=== PATIENT | female | born 1945 | race Caucasian/White ===

== ENCOUNTER → 2018-02-19 | Outpatient (CLI) | payer MEDICARE, OTHER ==
[~2018-02-19] MED LIST: BUPIVACAINE HCL 0.5% 10 ML VIAL As Ordered; CONRAY-43 43% 50ML VIAL (Q9960) As Ordered; methylPREDNISolone SUSP 40 MG/ML (DEPO-medrol) VIAL (J1030) As Ordered
== END ==
LOC: M RADPRO 10:19
DX: M70.61 Trochanteric bursitis, right hip (principal); M16.11 Unilateral primary osteoarthritis, right hip
CPT/HCPCS: 20610

== ENCOUNTER → 2018-04-14 | Outpatient (REF) | payer MEDICARE, OTHER | LOC: M LAB REF 18:52 | DX: Z12.4 Encounter for screening for malignant neoplasm of cervix (principal); N95.2 Postmenopausal atrophic vaginitis | CPT/HCPCS: G0123 ==

== ENCOUNTER → 2023-04-17 | Outpatient (CLI) | payer MEDICARE, OTHER | LOC: M CARPUL 09:18 | PROVIDERS: ATTEND Family Medicine | DX: I35.8 Other nonrheumatic aortic valve disorders (principal); M19.90 Unspecified osteoarthritis, unspecified site; E78.49 Other hyperlipidemia; G45.9 Transient cerebral ischemic attack, unspecified ==